=== PATIENT | male | born 1950 | race Caucasian/White ===

== ENCOUNTER → 2017-04-01 | Outpatient (CLI) | payer OTHER, MEDICARE ==
[~2017-04-01] VITALS: Ht 188 cm; Wt 77.1 kg
[~2017-04-01] MED LIST: CLARITIN10 MG PO; MOBIC15 MG PO; PRAVACHOL20 MG PO
--- NOTE | ~2017-04-01 | P ---
[facility] [place] [address] PROCEDURE REPORT Name: GORDY LOPEZ Room #: [facility]#: [id number] Admission: 04/01/17 Attend Phys: Gordy Sutton MD Discharge: Date of : 52 Report #: [id number] THIS REPORT FOR: //name// CC: Paco Sutton OUTPATIENT COLONOSCOPY REPORT DATE OF SERVICE: 04/01/2017. BRIEF HISTORY: The patient is a 66-year-old male for average risk screening colonoscopy. Last exam was done about 10 years ago. PREOPERATIVE DIAGNOSIS: Average risk screening colonoscopy. POSTOPERATIVE DIAGNOSES: Negative for average risk screening colonoscopy with diverticulosis coli. MEDICATIONS: Deep sedation with propofol per anesthesia. SPECIMEN: None. ESTIMATED BLOOD LOSS: None. PROCEDURE: Colonoscopy to cecum and terminal ileum. FINDINGS: Prior to propofol sedation, procedure of colonoscopy was discussed with the patient as well as potential risks and its complications. He indicates he understands and desires to proceed. DESCRIPTION OF PROCEDURE: With the patient in left lateral decubitus position, digital examination was completed which revealed no abnormalities. Subsequently, the Dianxin video colonoscope was introduced into the rectum and advanced under direct vision to the cecum. Done with minimal difficulty. The cecum was identified by the ileocecal valve and the appendiceal orifice. I was able to visualize the distal segment of terminal ileum, which was inspected and noted to be unremarkable. At that point, the scope was slowly withdrawn and careful circumferential views obtained including retroflexing in the ascending colon. Upon slow withdrawal of the scope, the prep was noted to be excellent. Mucosa normal limits, normal vascular pattern, normal light reflex. As we withdrew the scope, there were a few scattered diverticula in proximal colon, but no other abnormalities were seen. As we withdrew the scope through the colon, no mucosal abnormalities were seen. No polyps were seen. In the left colon, in particular the sigmoid colon, there was moderate diverticular disease without endoscopic evidence of diverticulitis. Scope was withdrawn in the rectum and no abnormalities were seen. Upon retroflexion, no abnormalities were [facility] [address] [place] [address] PROCEDURE REPORT Name: GORDY LOPEZ Room #: [facility].#: [id number] Admission: 04/01/17 Attend Phys: Gordy Sutton MD Discharge: Date of : 52 Report #: [id number] seen. Scope was withdrawn. The patient tolerated the procedure well. CONDITION OF THE PATIENT UPON DISCHARGE: Following procedure, the patient drowsy, aroused, conversant and will be discharged home when fully ambulatory. INSTRUCTIONS TO THE PATIENT AND FAMILY AT THE TIME OF DISCHARGE: No neoplastic lesions were seen. This is a negative for average risk screening colonoscopy. Suggest high fiber diet for the diverticular disease, suggest average risk screening colonoscopy in 10 years. Last colonoscopy was then 10 years ago. Withdrawal time from the cecum was 12 minutes. <ELECTRONICALLY SIGNED> By: Gordy Sutton MD 04/05/17 1216 [id number] Gordy Sutton MD /nt
== END | disposition home or self-care (01) ==
LOC: GI 07:32
DX: Z12.11 Encounter for screening for malignant neoplasm of colon (principal); K57.30 Diverticulosis of large intestine without perforation or abscess without bleeding; E78.00 Pure hypercholesterolemia, unspecified; Z85.46 Personal history of malignant neoplasm of prostate; Z98.890 Other specified postprocedural states
CPT/HCPCS: 62110; 62900